=== PATIENT | female | born 2005 | race Caucasian/White ===

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

== ENCOUNTER 2024-07-16 06:47 | Emergency (ER) | payer OTHER ==
[~2024-07-16] VITALS: Ht 157.5 cm; Wt 82.5 kg
[~2024-07-16 06:47] MED LIST: OLOP2.5D15 RIGHTEYE
[2024-07-16] MEDS: PREDNISONE 20MG TABLET PO ONE (09:11)
[2024-07-16 09:25] VITALS: PULSE 90; RESP 20; O2SAT 99
[2024-07-16] MEDS: IPRATROPIUM/ALBUTEROL 0.5-3(2.5)MG/3ML NEB HHN ONE (09:25)
[2024-07-16] MEDS: ALBUTEROL (0.083%) 2.5MG/3ML NEB HHN ONE (09:25)
[2024-07-16] MEDS ORDERED: AZIT500T8 MT (10:36)
[2024-07-16] MEDS ORDERED: P50 MT (10:36)
[2024-07-16] MEDS ORDERED: ALBU18HF2 IH (10:36)
[2024-07-16] MEDS ORDERED: GUAI237L83 MT (10:37)
[2024-07-16 10:44] VITALS: BP 122/78; PULSE 84; RESP 20; TEMP 37.11408; O2SAT 99
== END 2024-07-16 10:50 | disposition home or self-care (01) ==
LOC: ER 06:47
DX: J45.901 Unspecified asthma with (acute) exacerbation (principal); J06.9 Acute upper respiratory infection, unspecified; B97.89 Other viral agents as the cause of diseases classified elsewhere; Z79.52 Long term (current) use of systemic steroids; Z20.822 Contact with and (suspected) exposure to COVID-19
CPT/HCPCS: 87804 ×2; 71045; 94640; 94070; 99284; 87426; J7512; Z7610 ×4

== ENCOUNTER 2025-03-14 05:54 | Emergency (ER) | payer OTHER ==
[~2025-03-14] VITALS: Ht 147.3 cm; Wt 81.0 kg
[~2025-03-14 05:54] MED LIST changes: +ALBU18HF2 IH; +AZIT500T8 MT; +GUAI237L83 MT; +P50 MT
[2025-03-14 05:59] VITALS: O2SAT 100
[2025-03-14 06:27] LABS: BASOPHILS % 0.4 % (0.0-2.0); EOSINOPHILS % 4.4 % (0.0-5.0); HEMATOCRIT. 35.4 % (36.0-48.0); HEMOGLOBIN. 11.9 g/dL (12.0-16.0); LYMPHOCYTES % 25.0 % (20.0-50.0); MEAN PLATELET VOLUME 10.5 fl (7.4-10.4); MONOCYTES % 6.7 % (2.0-8.0); NEUTROPHILS % 63.5 % (40.0-76.0); PLATELET 209 x1000/uL (130-400); RED BLOOD CELL COUNT 4.40 mill/uL (4.2-5.4); RED CELL DISTRIBUTION WIDTH 15.6 % (11.6-14.6)
[2025-03-14] MEDS ORDERED: DEXAMETHASONE 1MG TABLET PO ONE (06:30)
[2025-03-14 06:43] LABS: CREATININE 0.5 mg/dL (0.6-1.0)
[2025-03-14 06:44] LABS: UREA NITROGEN BLOOD 14 mg/dL (9-23)
[2025-03-14 06:45] LABS: ASPARTATE AMINOTRANSFERASE 12 IU/L (<34)
[2025-03-14 06:46] LABS: BILIRUBIN DIRECT < 0.1 mg/dL (<=3.0); BILIRUBIN TOTAL 0.3 mg/dL (0.1-1.0); PROTEIN TOTAL 6.9 g/dL (6.0-8.3)
[2025-03-14 06:52] LABS: HCG SCREEN NEGATIVE
[2025-03-14] MEDS: ONDANSETRON 4MG ODT PO ONE (07:05)
[2025-03-14] MEDS: DEXAMETHASONE 4MG TABLET PO SCH (07:05)
[2025-03-14 08:27] VITALS: PULSE 82; RESP 18
[2025-03-14] MEDS: ALBUTEROL (0.083%) 2.5MG/3ML NEB HHN SCH (08:27)
[2025-03-14] MEDS: IPRATROPIUM BROMIDE (0.02%) 0.5MG/2.5ML NEB HHN SCH (08:27)
[2025-03-14 08:36] VITALS: PULSE 84; RESP 18
[2025-03-14 08:47] VITALS: PULSE 79; RESP 18
[2025-03-14] MEDS ORDERED: ONDA-239 PO (08:53)
[2025-03-14 08:55] VITALS: BP 116/73; PULSE 90; RESP 16; TEMP 36.9; O2SAT 98
== END 2025-03-14 08:56 | disposition home or self-care (01) ==
LOC: ER 05:54
DX: B34.9 Viral infection, unspecified (principal); J45.901 Unspecified asthma with (acute) exacerbation; R11.2 Nausea with vomiting, unspecified; Z79.899 Other long term (current) drug therapy
CPT/HCPCS: 80076; 80048; 84703; 83690; 85025; 36415; 71045; 94640; 93005; 99291; J8540; Q0162; Z7610 ×3

== ENCOUNTER 2025-06-25 23:29 | Emergency (ER) | payer OTHER ==
[~2025-06-25] VITALS: Ht 147.3 cm; Wt 77.0 kg
[~2025-06-25 23:29] MED LIST changes: +ONDA-239 PO
[2025-06-25 23:38] VITALS: O2SAT 98
[2025-06-26 00:40] LABS: BASOPHILS % 0.3 % (0.0-2.0); EOSINOPHILS % 0.4 % (0.0-5.0); HEMATOCRIT. 36.4 % (36.0-48.0); HEMOGLOBIN. 12.3 g/dL (12.0-16.0); LYMPHOCYTES % 12.2 % (20.0-50.0); MEAN PLATELET VOLUME 10.8 fl (7.4-10.4); MONOCYTES % 3.6 % (2.0-8.0); NEUTROPHILS % 83.5 % (40.0-76.0); PLATELET 183 x1000/uL (130-400); RED BLOOD CELL COUNT 4.51 mill/uL (4.2-5.4); RED CELL DISTRIBUTION WIDTH 16.1 % (11.6-14.6)
[2025-06-26] MEDS: ACETAMINOPHEN 325MG TABLET PO ONE (00:51)
[2025-06-26] MEDS: SODIUM CHLORIDE 0.9% 1,000 ML IV ONE (00:52)
[2025-06-26] MEDS: ONDANSETRON HCL 4MG/2ML INJ IV ONE (00:52)
[2025-06-26 00:56] LABS: CREATININE 0.5 mg/dL (0.6-1.0); UREA NITROGEN BLOOD 10 mg/dL (9-23)
[2025-06-26 01:07] LABS: CLARITY URINE CLOUDY (CLEAR); COLOR URINE YELLOW (YELLOW); GLUCOSE URINE NEGATIVE (NEGATIVE); KETONES URINE 2+ (NEGATIVE); LEUKOCYTE ESTERASE URINE TRACE (NEGATIVE); NITRITE URINE NEGATIVE (NEGATIVE); OCCULT BLOOD URINE NEGATIVE (NEGATIVE); PH URINE 6.0 (4.5-8.0); PROTEIN URINE 1+ (NEGATIVE); SPECIFIC GRAVITY URINE 1.018 (1.005-1.030); UROBILINOGEN URINE 1.0 E.U./dL (0.2-1.0)
[2025-06-26 01:10] LABS: HCG SCREEN NEGATIVE
[2025-06-26 01:56] LABS: BACTERIA URINE TRACE; RBC URINE NONE SEEN /hpf (0-2); SQUAMOUS EPITHELIAL CELL URINE 2+ /lpf (RARE/1+)
[2025-06-26 02:03] LABS: *AMPHETAMINES SCREEN URINE NEGATIVE (NEGATIVE); *BARBITURATES SCREEN URINE NEGATIVE (NEGATIVE); *BENZODIAZEPINES SCREEN URINE NEGATIVE (NEGATIVE); *COCAINE SCREEN URINE NEGATIVE (NEGATIVE); METHADONE URINE SCREEN NEGATIVE (NEGATIVE)
[2025-06-26 02:04] LABS: CANNABINOID URINE SCREEN NEGATIVE (NEGATIVE); ECSTASY MDMA SCREEN URINE NEGATIVE (NEGATIVE); OPIATES URINE SCREEN NEGATIVE (NEGATIVE); PHENCYCLIDINE URINE SCREEN NEGATIVE (NEGATIVE)
[2025-06-26] MEDS: KETOROLAC 15MG/ML VIAL IV ONE (04:28)
[2025-06-26 04:30] VITALS: BP 107/63; PULSE 76; RESP 12; TEMP 37.1; O2SAT 98
[2025-06-26] MEDS ORDERED: NAPR-1164 MT (04:32)
[2025-06-26] MEDS ORDERED: IOHEXOL-300 100 ML BOTTLE ONE (07:05)
== END 2025-06-26 04:40 | disposition home or self-care (01) ==
LOC: ER 23:29
DX: N83.201 Unspecified ovarian cyst, right side (principal); J45.909 Unspecified asthma, uncomplicated; R10.31 Right lower quadrant pain; R11.0 Nausea; Z79.899 Other long term (current) drug therapy
CPT/HCPCS: 36415; 99285; 80305; 80048; 81003; 81025; 80320; 84703; 85025; 74177; 76856; 96361; 96374; 96375; Q9967; J1885; J2405; J7030; Z7610 ×3; G0480